=== PATIENT | female | born 1990 | race Caucasian/White ===

== ENCOUNTER 2018-04-21 18:02 | Emergency (ER) | payer OTHER ==
[~2018-04-21] VITALS: Ht 160 cm; Wt 81.7 kg
[2018-04-21] MEDS ORDERED: AMOXICILLIN875 MG PO (18:45)
[2018-04-21] MEDS ORDERED: MEDROLDOSEPACK PO (18:45)
[2018-04-21 18:57] VITALS: BP 154/99
== END 2018-04-21 18:57 | disposition home or self-care (01) ==
LOC: M.ERS 18:02
DX: J02.9 Acute pharyngitis, unspecified (principal); H66.92 Otitis media, unspecified, left ear; Z98.890 Other specified postprocedural states

== ENCOUNTER 2018-07-19 17:42 | Emergency (ER) | payer OTHER ==
[~2018-07-19] VITALS: Ht 157.5 cm; Wt 81.7 kg
[~2018-07-19 17:42] MED LIST: AMOXICILLIN875 MG PO; MEDROLDOSEPACK PO
[2018-07-19] MEDS ORDERED: AMOXIL 875 MG875 M1 PO (18:18)
[2018-07-19 18:29] VITALS: BP 136/87
== END 2018-07-19 18:29 | disposition home or self-care (01) ==
LOC: M.ERS 17:42
DX: J02.0 Streptococcal pharyngitis (principal); Z98.890 Other specified postprocedural states

== ENCOUNTER 2019-03-21 15:38 | Emergency (ER) | payer OTHER ==
[~2019-03-21] VITALS: Ht 157.5 cm; Wt 81.7 kg
[~2019-03-21 15:38] MED LIST changes: +AMOXIL 875 MG875 M1 PO
[2019-03-21 16:22] LABS: URINE BILIRUBIN NEGATIVE (Negative); URINE BLOOD 2+ (Negative); URINE CLARITY CLEAR; URINE COLOR YELLOW; URINE GLUCOSE-RANDOM NEGATIVE (Negative); URINE KETONES 2+ (Negative); URINE LEUKOCYTES NEGATIVE (Negative); URINE NITRITE NEGATIVE (Negative); URINE PROTEIN NEGATIVE (Negative); URINE SPECIFIC GRAVITY 1.025 (1.005-1.030); URINE UROBILINOGEN 0.2 E.U./dl (0.2-1.0)
[2019-03-21 16:29] LABS: HEMATOCRIT 41.3 % (37.0-47.0); HEMOGLOBIN 14.3 gm/dL (12.0-15.0); MCH 32.6 pg (26.0-34.0); MCHC 34.5 g/dL (28.0-37.0); MCV 94.5 fL (80.0-100.0); MPV 9.5 fl. (7.2-11.1); NUCLEATED RBCS 0 /100WBC; PLATELET COUNT* 193 thou/uL (150-400); RBC 4.37 mil/uL (4.20-5.00); RDW-CV 13.3 % (10.5-14.5); WBC 16.9 thou/uL (4.0-11.0)
[2019-03-21 16:47] LABS: CALCIUM 8.3 mg/dL (8.5-10.1); CREATININE 0.8 mg/dL (0.6-1.3); POTASSIUM 3.4 mmol/L (3.5-5.1)
[2019-03-21 16:51] LABS: INFLUENZA A ANTIGEN Negative (Negative); INFLUENZA B ANTIGEN Negative (Negative)
[2019-03-21 16:51] LABS: ALBUMIN 3.8 g/dL (3.4-5.0); TOTAL BILIRUBIN 1.5 mg/dL (<0.1-1.0); TOTAL PROTEIN 7.8 g/dL (6.4-8.2)
[2019-03-21 17:01] LABS: BACTERIA >30 Many /HPF (None Seen); CASTS None Seen /LPF (None Seen); CRYSTALS None Seen /LPF (None Seen); MUCUS >6 Heavy strn/LPF (None Seen); SQUAMOUS >10 Many /LPF (0-3); URINE RBC 0-2 Rare /HPF (0-2); URINE WBC 0-5 Rare /HPF (0-5)
[2019-03-21 17:18] LABS: ABSOLUTE LYMPHOCYTES 2.2 thou/uL (0.8-5.3); ABSOLUTE MONOCYTES 1.2 thou/uL (0.0-1.2); ABSOLUTE NEUTROPHILS 13.5 thou/uL (1.6-8.1); PLATELET ESTIMATE ADEQUATE
[2019-03-21] MEDS ORDERED: PREDNISONE 10 M10 MG PO (19:09)
[2019-03-21] MEDS ORDERED: AZITHROMYCIN 2250 MG PO (19:09)
[2019-03-21] MEDS ORDERED: PROAIR HFA8.5 GM INH (19:09)
[2019-03-21] MEDS ORDERED: TESSALON PERLE100 M1 PO (19:09)
[2019-03-21 20:00] VITALS: BP 94/50
== END 2019-03-21 20:00 | disposition short-term general hospital (02) ==
LOC: M.ERS 15:38
PROVIDERS: Physician Assistant
DX: J36 Peritonsillar abscess (principal); Z98.890 Other specified postprocedural states